=== PATIENT | female | born 1945 | race Hispanic/Latino ===

== ENCOUNTER 2019-02-24 11:15 | Day surgery (SDC) | payer MEDICARE ==
[~2019-02-24 11:15] MED LIST: IOPIDINE ONE; MYDRIACYL ONE; NEOFRIN ONE
[2019-02-24] MEDS ORDERED: NEOFRIN OS ONE ×2 (11:37)
[2019-02-24] MEDS ORDERED: MYDRIACYL OS ONE (11:37)
[2019-02-24] MEDS ORDERED: IOPIDINE OS ONE (11:37)
[2019-02-24 12:03] VITALS: BP 135/66
== END 2019-02-24 13:18 | disposition home or self-care (01) ==
LOC: OR 11:15
PROVIDERS: ATTEND Specialist
DX: H26.492 Other secondary cataract, left eye (principal); E78.00 Pure hypercholesterolemia, unspecified; I10 Essential (primary) hypertension; J45.909 Unspecified asthma, uncomplicated; K21.9 Gastro-esophageal reflux disease without esophagitis; Z79.899 Other long term (current) drug therapy; Z98.41 Cataract extraction status, right eye; Z98.42 Cataract extraction status, left eye; Z90.710 Acquired absence of both cervix and uterus; Z72.89 Other problems related to lifestyle; Z98.890 Other specified postprocedural states